=== PATIENT | female | born 1965 | race African-American/Black ===

== ENCOUNTER 2017-03-30 11:44 | Observation (INO) | payer MEDICAID, OTHER ==
[~2017-03-30] VITALS: Ht 165.1 cm; Wt 104.5 kg
[~2017-03-30 11:44] MED LIST: 1-ME1LIQ PO; DOCU1CAP39 PO; GABA600T PO; LISI-363 PO; MACR100C PO; MIRA33502 PO; PANT20 PO; PERC5TAB12 PO
[2017-03-30 11:45] VITALS: BP 174/95; PULSE 79; RESP 16; TEMP 98.6; O2SAT 99
--- NOTE | 2017-03-30 11:59 | PD ---
Physical Exam Time Seen by Provider: 11:58 Narrative [age]yo M sent by Urgent care for increased BP, chest pain , dizziness, and YATES x2 days. BP at urgent care 173/94. Patient seen in triage. VS reviewed. Awaiting bed placement. Data Data Last Documented VS Vital Signs Date Time Temp Pulse Resp B/P Pulse Ox O2 Delivery O2 Flow Rate FiO2 03/30/17 11:45 98.6 79 16 174/95 99 Room Air MDM Supervised Visit with JACI: Charlotte Nunes Mar 30, 2017 11:59
--- NOTE | 2017-03-30 12:17 | PD ---
HPI Chief Complaint: Chest Pain Time Seen by Provider: 12:17 Travel History International Travel<30 days: No Contact w/Intl Traveler<30days: No Traveled to known affect area: No History of Present Illness HPI 52-year-old female with a history of hypertension presents to the emergency department for evaluation of elevated blood pressure. The patient was seen at an urgent care today for dental pain and while she was at the urgent care her blood pressure was noted to be around 170/90. States that she told the provider there that she does sometimes have chest pain and was told by this provider that she needed to come to the emergency department. The patient states that she's had intermittent left anterior sharp chest pains for the last year. States that the pain is a sharp stabbing pain lasting for a few seconds and then is a soreness lasting for a few minutes. She is not currently experiencing any chest pain, states she did have one episode of it earlier today. Denies any aggravating or alleviating factors. Denies any associated shortness of breath, difficulty breathing, lightheadedness, nausea, vomiting, swelling of the extremities. States that she does sometimes have a feeling of lightheadedness when her blood pressure is elevated but this does not occur when she has the chest pain. She denies any history of heart disease or MS. States that her last stress test was many years ago. States that her PCP Dr. Larry recently told her that she would be referred to a jet man as an outpatient for evaluation of this chest pain. The patient also separately complains of dental pain that has been ongoing for several years, she is unable to see a dentist and therefore has many dental caries. Specifically in the right lower and left upper dentition she has pain. No other complaints. PFSH Past Medical History Anemia: Yes Arthritis: Yes (rheumatoid arthritis) Asthma: Yes Autoimmune Disease: No Anxiety: Yes Depression: Yes Cancer: No Cardiovascular Problems: Yes (HTN) Chemotherapy: No COPD: No Cerebrovascular Accident: No Diminished Hearing: No Endocrine: No Gastrointestinal Disorders: Yes GERD: Yes Genitourinary: No Headaches: Yes Hiatal Hernia: No Hypertension: Yes Immune Disorder: No Musculoskeletal: Yes (muscle spasms) Neurologic: Yes Psychiatric: Yes (PANIC ATTACKS) Reproductive: No Respiratory: Yes Migraines: Yes Radiation Therapy: No Seizures: Yes (as child and states grew out of them) Sickle Cell Disease: No Sleep Apnea: No Ulcer: No ?: Not Menopausal: Yes : 4 Para: 4 Past Surgical History Abdominal Surgery: Yes (gastric bypass 1999 gallbladder) Body Medical Devices: gi bypass Cardiac Surgery: No Section: Yes Cholecystectomy: Yes Ear Surgery: No Endocrine Surgery: No Eye Surgery: No Genitourinary Surgery: No Gynecologic Surgery: Yes (c section) Oral Surgery: No Thoracic Surgery: No Tonsillectomy: Yes Other Surgery: Yes Social History Alcohol Use: No Tobacco Use: No (QUIT 03/2014) Substance Use: No Allergies-Medications (Allergen,Severity, Reaction): Coded Allergies: Doxycycline (Verified Allergy, Severe, Itching, 08/18/15) Penicillin (Verified Allergy, Severe, RASH, 08/18/15) Reported Meds & Prescriptions Reported Meds & Active Scripts Active Clindamycin (Clindamycin HCl) 150 Mg Cap 150 Mg PO Q8HR 10 Days Reported Amlodipine (Amlodipine Besylate) 10 Mg Tab 10 Mg PO DAILY Lisinopril 20 Mg Tab 20 Mg PO BID Protonix (Pantoprazole Sodium) 20 Mg Tab 20 Mg PO DAILY Review of Systems Except as stated in HPI: all other systems reviewed are Neg Physical Exam Narrative GENERAL: Obese female patient in no acute distress who is nontoxic appearing. SKIN: Warm and dry. HEAD: Normocephalic and atraumatic. EYES: No injection, drainage, or hyphema noted. PERRLA. EOMI. ENT: No nasal drainage noted. Oropharynx is clear. DENTAL: Poor dentition. Edentulous with multiple dental caries. There is erythema of the gingiva of the left upper dentition, no fluctuance, discharge or drainage. NECK: Supple and the trachea is midline. CARDIOVASCULAR: Regular rate and rhythm. RESPIRATORY: Breath sounds are equal bilaterally with no accessory muscle use, wheezing, rhonchi, or crackles. GASTROINTESTINAL: Abdomen is soft, non-tender, and nondistended. MUSCULOSKELETAL: No obvious deformities, swelling, cyanosis, or ecchymosis is present throughout the upper and lower extremities. Patient has full range of motion without any signs of neurovascular compromise. NEUROLOGICAL: Awake, alert, and oriented. Normal speech and gait. Cranial nerves are grossly intact. Data Data Last Documented VS Vital Signs Date Time Temp Pulse Resp B/P Pulse Ox O2 Delivery O2 Flow Rate FiO2 03/30/17 12:35 98.3 64 17 120/80 99 03/30/17 11:45 Room Air Orders Electrocardiogram (03/30/17 12:16) Ckmb (Isoenzyme) Profile (03/30/17 12:16) Complete Blood Count With Diff (03/30/17 12:16) Comprehensive Metabolic Panel (03/30/17 12:16) Magnesium (Mg) (03/30/17 12:16) Prothrombin Time / Inr (Pt) (03/30/17 12:16) Act Partial Throm Time (Ptt) (03/30/17 12:16) Troponin I (03/30/17 12:16) Chest, Single Ap (03/30/17 12:16) Ecg Monitoring (03/30/17 12:16) Bilateral Bp Monitoring (03/30/17 12:16) Iv Access Insert/Monitor (03/30/17 12:16) Oximetry (03/30/17 12:16) Sodium Chloride 0.9% Flush (Ns Flush) (03/30/17 12:30) CKMB (03/30/17 12:30) CKMB% (03/30/17 12:30) Acetamin-Hydrocod 325-5 Mg ([place] 5-325 (03/30/17 14:45) Clindamycin (Cleocin) (03/30/17 14:45) Admit Order (Ed Use Only) (03/30/17 14:31) Labs Laboratory Tests Test 03/30/17 12:30 White Blood Count 7.2 TH/MM3 Red Blood Count 4.19 MIL/MM3 Hemoglobin 11.5 GM/DL Hematocrit 34.9 % Mean Corpuscular Volume 83.5 FL Mean Corpuscular Hemoglobin 27.5 PG Mean Corpuscular Hemoglobin 32.9 % Concent Red Cell Distribution Width 16.3 % Platelet Count 292 TH/MM3 Mean Platelet Volume 10.5 FL Neutrophils (%) (Auto) 62.4 % Lymphocytes (%) (Auto) 32.9 % Monocytes (%) (Auto) 3.0 % Eosinophils (%) (Auto) 1.1 % Basophils (%) (Auto) 0.6 % Neutrophils # (Auto) 4.5 TH/MM3 Lymphocytes # (Auto) 2.4 TH/MM3 Monocytes # (Auto) 0.2 TH/MM3 Eosinophils # (Auto) 0.1 TH/MM3 Basophils # (Auto) 0.0 TH/MM3 CBC Comment DIFF FINAL Differential Comment Prothrombin Time 10.0 SEC Prothromb Time International 0.9 RATIO Ratio Activated Partial 20.5 SEC Thromboplast Time Sodium Level 142 MEQ/L Potassium Level 4.2 MEQ/L Chloride Level 107 MEQ/L Carbon Dioxide Level 28.4 MEQ/L Anion Gap 7 MEQ/L Blood Urea Nitrogen 5 MG/DL Creatinine 0.61 MG/DL Estimat Glomerular Filtration 124 ML/MIN Rate Random Glucose 74 MG/DL Calcium Level 8.8 MG/DL Magnesium Level 2.2 MG/DL Total Bilirubin 0.3 MG/DL Aspartate Amino Transf 38 U/L (AST/SGOT) Alanine Aminotransferase 29 U/L (ALT/SGPT) Alkaline Phosphatase 106 U/L Total Creatine Kinase 114 U/L Creatine Kinase MB LESS THAN 0.5 NG/ML Troponin I LESS THAN 0.02 NG/ML Total Protein 7.6 GM/DL Albumin 3.4 GM/DL [facility] Medical Decision Making Medical Screen Exam Complete: Yes Emergency Medical Condition: Yes Differential Diagnosis Poorly controlled hypertension versus pleurisy versus angina versus dental infection Narrative Course 52-year-old female presents to the emergency department for evaluation of elevated blood pressure, intermittent chest pain for one year and dental pain. Patient is afebrile. She is hypertensive with a blood pressure 174/95. Otherwise vital signs are within normal limits. Physical examination reveals mild dental infection but no other acute abnormalities noted. Patient's blood pressure being elevated could be secondary to her dental pain. IV access is obtained, labs drawn and sent. Patient is placed on cardiac telemetry and pulse oximetry monitoring. Patient cannot take aspirin due to history of gastric bypass. EKG shows normal sinus rhythm with no acute ST elevations or depressions. CBC shows mild anemia with a hemoglobin of 11.5, hematocrit 34.9. Patient has a history of iron deficiency anemia and is not taking her iron. CMP is unremarkable. Troponin is less than 0.02. Coags are unremarkable. Chest x-ray is negative. Patient is reassessed and has remained stable while here in the ED. I offered admission to chest pain center and at first patient elected to stay. A few minutes after I placed the admission order she has changed her mind and states she has to leave because her significant other has surgery in the morning and she has to leave. I explained to her that should she develop any worsening of symptoms she should return to the emergency department. Advised outpatient follow-up with her PCP. Diagnosis Primary Impression: Chest pain Qualified Code: R07.9 - Chest pain, unspecified type Additional Impression: Dental infection Referrals: Dentist Primary Care Physician Patient Instructions: Chest Pain (ED), Dental Caries (ED), General Instructions Additional Instructions: You have had chest pain. We did cardiac enzymes, chest x-ray and ekg that were unremarkable. We recommended you stay in chest pain center however you chose to be discharged to home instead. If you have any worsening of symptoms such as worsening chest pain, shortness of breath, lightheadedness, syncope, please return to the emergency department. Take medications as prescribed with food and a full glass of water. Follow-up with your Primary Care Physician and a Dentist. Return to the ED for any acute worsening of symptoms. Med/Other Pt SpecificInfo: Prescription(s) given Scripts Clindamycin 150 Mg Ual813 Mg PO Q8HR 10 Days Ref 0 Prov:Abdias Wang MD 03/30/17 Disposition: 01 DISCHARGE HOME Condition: Stable Charlotte Carrasco Mar 30, 2017 12:17
[2017-03-30] MEDS ORDERED: SODIUM CHLORIDE 0.9% FLUSH 10 ML FLUSH IVF PRN (12:30)
[2017-03-30] MEDS ORDERED: LISI-515 PO (12:33)
[2017-03-30] MEDS ORDERED: AMLO10TA2 PO (12:33)
[2017-03-30] MEDS ORDERED: PANT20 PO (12:33)
[2017-03-30 12:35] VITALS: BP 120/80; PULSE 64; RESP 17; TEMP 98.3; O2SAT 99
--- NOTE | 2017-03-30 13:14 | RADRPT ---
EXAM DATE/TIME: 03/30/2017 12:35 [facility] COMPARISON: CHEST SINGLE AP, May 13, 2014, 13:02. INDICATIONS : Chest pain. MEDICAL HISTORY : Hypertension. SURGICAL HISTORY : section. ENCOUNTER: Initial ACUITY: 2 days PAIN SCORE: 6/10 LOCATION: Left chest FINDINGS: A single view of the chest demonstrates the lungs to be symmetrically aerated without evidence of mas s, infiltrate or effusion. The cardiomediastinal contours are unremarkable. Osseous structures are intact. CONCLUSION: No acute disease. Eyad Calderón Jr., MD on March 30, 2017 at 13:11 Board Certified Radiologist. This report was verified electronically.
[2017-03-30 13:44] LABS: AUTOMATED NEUTROPHIL # 4.5 TH/MM3 (1.8-7.7); BASOPHIL % 0.6 % (0.0-2.0); EOSINOPHIL # 0.1 TH/MM3 (0-0.4); EOSINOPHIL % 1.1 % (0.0-4.0); HEMATOCRIT 34.9 % (35.0-46.0); HEMO FLAGS DIFF FINAL; LYMPH % 32.9 % (9.0-44.0); LYMPHOCYTE # 2.4 TH/MM3 (1.0-4.8); MEAN CELL VOLUME 83.5 FL (80.0-100.0); MEAN CORPUSCULAR HEMOGLOBIN 27.5 PG (27.0-34.0); MEAN CORPUSCULAR HGB CONC 32.9 % (32.0-36.0); NEUT % 62.4 % (16.0-70.0); PLATELET COUNT 292 TH/MM3 (150-450); RED BLOOD COUNT 4.19 MIL/MM3 (4.00-5.30); RED CELL DISTRIBUTION WIDTH 16.3 % (11.6-17.2); WHITE BLOOD COUNT 7.2 TH/MM3 (4.0-11.0)
[2017-03-30 14:00] LABS: ALT (GPT) 29 U/L (10-53); ANION GAP 7 MEQ/L (5-15); AST (GOT) 38 U/L (15-37); BICARBONATE 28.4 MEQ/L (21.0-32.0); BLOOD UREA NITROGEN 5 MG/DL (7-18); CHLORIDE 107 MEQ/L (98-107); GLOMERULAR FILTRATION RATE 124 ML/MIN (>89); MAGNESIUM 2.2 MG/DL (1.5-2.5); SODIUM (NA) 142 MEQ/L (136-145)
[2017-03-30 14:01] LABS: POTASSIUM 4.2 MEQ/L (3.5-5.1)
[2017-03-30 14:04] LABS: INTERNATIONAL NORMALIZED RATIO 0.9 RATIO
[2017-03-30 14:05] LABS: APTT (PATIENT) 20.5 SEC (24.3-30.1)
[2017-03-30 14:25] LABS: ALKALINE PHOSPHATASE 106 U/L (45-117); CREATINE KINASE 114 U/L (26-192); TOTAL BILIRUBIN ADULT 0.3 MG/DL (0.2-1.0)
[2017-03-30] MEDS ORDERED: CLIN1CAP5 PO (14:32)
[2017-03-30 14:37] LABS: CKMB LESS THAN 0.5 NG/ML (0.5-3.6)
[2017-03-30] MEDS ORDERED: CLINDAMYCIN 150 MG CAP PO ONE (14:45)
[2017-03-30] MEDS ORDERED: ACETAMINOPHEN/HYDROcodone 325 MG/5 MG TAB PO ONE (14:45)
--- NOTE | 2017-03-31 14:02 | EKG ---
Date Performed: 03/30/2017 Time Performed: 12:36:08 PTAGE: 52 years EKG: Sinus rhythm WITH SINUS ARRHYTHMIA POSSIBLE LEFT ATRIAL ENLARGEMENT BORDERLINE ECG Compared to prior tracing no s ignificant change PREVIOUS TRACING : 08/17/2014 12.26 DOCTOR: Greg Cadena Interpretating Date/Time 03/31/2017 13:57:03
== END 2017-03-30 14:55 | disposition left against medical advice (07) ==
LOC: NEPE 11:44 → NEDA 14:32
PROVIDERS: ADMIT Internal Medicine Interventional Cardiology; ATTEND Internal Medicine Interventional Cardiology
DX: R07.9 Chest pain, unspecified (principal); K21.9 Gastro-esophageal reflux disease without esophagitis; I10 Essential (primary) hypertension; Z88.1 Allergy status to other antibiotic agents; Z88.0 Allergy status to penicillin; Z98.84 Bariatric surgery status; M06.9 Rheumatoid arthritis, unspecified; J45.909 Unspecified asthma, uncomplicated; D50.9 Iron deficiency anemia, unspecified; K04.7 Periapical abscess without sinus; I49.8 Other specified cardiac arrhythmias
CPT/HCPCS: 71010; 80053; 82550; 82552; 83735; 84484; 85025; 85610; 85730; 93005; 99285; G0378